=== PATIENT | male | born 1990 | race Asian ===

== ENCOUNTER 2023-03-23 12:55 | Emergency (ER) | payer SELFPAY ==
[2023-03-23] MEDS ORDERED: cefTRIAXone (ROCEPHIN) 500 MG VIAL ONE (13:40)
[2023-03-23] MEDS ORDERED: Azithromycin 250 MG TAB ONE (13:40)
[2023-03-23] MEDS ORDERED: Sterile Water 10 ML ONE (13:41)
[2023-03-23 13:53] LABS: Bilirubin Negative (Negative); Blood, Urine Negative (Negative); Glucose, Urine (Dipstick) Negative (Negative); Ketone, Urine Negative (Negative); Leukocyte Negative (Negative); Nitrite Negative (Negative); Protein, Urine (Dipstick) Negative (Neg-Trace); pH, Urine 7.5 (5.0-9.0)
[2023-03-23 13:55] LABS: Clarity Hazy (Clear)
[2023-03-23 13:59] LABS: CAUTI Indications for Culture Dysuria,urgency,freq; WBC/HPF None Seen HPF (0-3)
[2023-03-23 14:00] LABS: Bacteria/HPF Rare-Few HPF (None Seen)
[2023-03-23 14:02] LABS: Urine Culture Reflex No No
[2023-03-24 09:40] LABS: Chlam.trachomatis by PCR,Urine Not Detected (NotDetected); GC N.gonorrhoeae PCR,UrineVOID Not Detected (NotDetected)
== END 2023-03-23 14:11 | disposition home or self-care (01) ==
LOC: NAV ERS 12:55
DX: N34.1 Nonspecific urethritis (principal)
CPT/HCPCS: 81001; 87491; 87591; 96372; 99283; J0696

== ENCOUNTER 2023-03-27 18:48 | Emergency (ER) | payer SELFPAY | END 2023-03-27 20:11 | disposition home or self-care (01) | LOC: NAV ERS 18:48 | DX: B35.6 Tinea cruris (principal); R30.0 Dysuria | CPT/HCPCS: 99283 ==